=== PATIENT | female | born 1945 | race African-American/Black ===

== ENCOUNTER 2018-12-06 20:44 | Emergency (ER) | payer OTHER ==
[~2018-12-06] VITALS: Ht 170.2 cm; Wt 113.0 kg
[2018-12-06] MEDS ORDERED: ONDANSETRON HCL 4MG/2ML INJ IV STA (22:46)
[2018-12-06] MEDS ORDERED: KETOROLAC 30MG/ML VIAL IV STA (22:46)
[2018-12-06] MEDS ORDERED: METHOCARBAMOL 750MG TABLET PO STA (22:46)
[2018-12-06] MEDS ORDERED: MORPHINE SULFATE 4 MG/ML CPJ (NOT FOR IM USE) IV STA (22:46)
[2018-12-06] MEDS ORDERED: SODIUM CHLORIDE 0.9% 1,000 ML IV ONE (22:46)
[2018-12-06 23:34] LABS: CLARITY URINE CLEAR (CLEAR); COLOR URINE YELLOW (YELLOW); KETONES URINE NEGATIVE (NEGATIVE); LEUKOCYTE ESTERASE URINE TRACE (NEGATIVE); NITRITE URINE NEGATIVE (NEGATIVE); OCCULT BLOOD URINE 1+ (NEGATIVE); PH URINE 7.5 (4.5-8.0); PROTEIN URINE NEGATIVE (NEGATIVE); SPECIFIC GRAVITY URINE 1.015 (1.005-1.030)
[2018-12-07 00:38] LABS: BASOPHILS % 0.5 % (0.0-2.0); EOSINOPHILS % 1.4 % (0.0-5.0); HEMATOCRIT. 43.9 % (36.0-48.0); HEMOGLOBIN. 14.3 g/dL (12.0-16.0); MEAN CORPUSCULAR HEMOGLOBIN 29.6 pg (28.0-32.0); MEAN CORPUSCULAR VOLUME 90.5 fL (81.0-99.0); MEAN PLATELET VOLUME 8.2 fl (7.4-10.4); MONOCYTES % 8.6 % (2.0-8.0); NEUTROPHILS % 57.5 % (40.0-76.0); PLATELET 195 x1000/uL (130-400); RED BLOOD CELL COUNT 4.85 mill/uL (4.2-5.4); RED CELL DISTRIBUTION WIDTH 14.1 % (11.6-14.6)
[2018-12-07] MEDS ORDERED: CEFTRIAXONE 1 G PREMIX 50 ML IV NR (01:30)
[2018-12-07 03:30] VITALS: BP 136/75
== END 2018-12-07 03:32 | disposition home or self-care (01) ==
LOC: ER 20:44
DX: M54.30 Sciatica, unspecified side (principal); N39.0 Urinary tract infection, site not specified; G89.29 Other chronic pain; I10 Essential (primary) hypertension; M19.90 Unspecified osteoarthritis, unspecified site; R73.03 Prediabetes; M79.605 Pain in left leg; Z88.5 Allergy status to narcotic agent; Z88.1 Allergy status to other antibiotic agents
CPT/HCPCS: 36415; 81003; 84484; 85025; 93005; 96365; 96375; 99284; J0696; J1885; J2270; J2405; J7030

== ENCOUNTER 2021-10-02 21:40 | Emergency (ER) | payer OTHER ==
[~2021-10-02] VITALS: Ht 167.6 cm; Wt 100.0 kg
[2021-10-02 22:32] VITALS: BP 160/87
== END 2021-10-02 22:40 | disposition home or self-care (01) ==
LOC: ER 21:40
DX: K21.9 Gastro-esophageal reflux disease without esophagitis (principal); I10 Essential (primary) hypertension
CPT/HCPCS: 93005; 99283

== ENCOUNTER 2024-08-15 02:14 | Emergency (ER) | payer OTHER ==
[~2024-08-15] VITALS: Ht 172.7 cm; Wt 66.0 kg
[2024-08-15 02:21] VITALS: O2SAT 100
[2024-08-15] MEDS ORDERED: LORAZEPAM 0.5MG TABLET PO ONE (02:45)
[2024-08-15] MEDS: LORAZEPAM 0.5MG TABLET PO NR (03:11)
[2024-08-15 04:28] VITALS: BP 135/98; PULSE 65; RESP 18; TEMP 36.94740; O2SAT 100
== END 2024-08-15 04:29 | disposition home or self-care (01) ==
LOC: ER 02:14
DX: F41.9 Anxiety disorder, unspecified (principal); I10 Essential (primary) hypertension; Z88.5 Allergy status to narcotic agent
CPT/HCPCS: 99283